=== PATIENT | female | born 1950 | race Caucasian/White ===

== ENCOUNTER 2017-08-30 17:03 | Emergency (ER) | payer MEDICARE, OTHER ==
[2017-08-30] MEDS ORDERED: HYDROCODONE/ACETAMINOPHEN 5-325 MG TABLET PO ONE (17:18)
[2017-08-30 17:19] VITALS: BP 146/71
[2017-08-30] MEDS ORDERED: KETOROLAC TROMETHAMINE INJ/PF 30 MG/1 ML SDV IM ONE (17:34)
[2017-08-30] MEDS ORDERED: FENTANYL CITRATE INJ/PF 100 MCG/2 ML AMPUL IM ONE (17:34)
[2017-08-30] MEDS ORDERED: DEXAMETHASONE 4 MG TABLET PO ONE (17:36)
--- NOTE | 2017-08-30 17:42 | ER Document Report ---
HPI - HPI Patient complains to provider of: Left fourth finger pain Onset: This morning Onset/Duration: Gradual Quality of pain: Sharp Pain Level: 4 Context: Patient states she woke up with left fourth finger pain this morning. Patient denies any injury or trauma to the finger. Patient does state that she had a ring get stuck to her finger 8 months ago and twisted to take the ring off but since then has not had any pain until this morning. Patient does have a history of rheumatoid arthritis and has decreased range of motion to all the joints of her hand. Patient without any fever. Patient states she did take tramadol at home without any improvement of her pain symptoms. Patient denies any fever. Associated Symptoms: Other - Left fourth finger pain. denies: Fever Exacerbated by: Movement Relieved by: Denies Similar symptoms previously: No Recently seen / treated by doctor: No - ROS ROS below otherwise negative: Yes Systems Reviewed and Negative: Yes All other systems reviewed and negative - CONSTITUTIONAL Constitutional: DENIES: Fever, Chills - NEURO Neurology: DENIES: Headache - CARDIOVASCULAR Cardiovascular: DENIES: Chest pain - GASTROINTESTINAL Gastrointestinal: DENIES: Nausea - MUSCULOSKELETAL Musculoskeletal: REPORTS: Extremity pain. DENIES: Swelling - DERM Skin Color: Normal Skin Problems: None Past Medical History - General Information source: Patient - Social History Smoking Status: Never Smoker Frequency of alcohol use: None Drug Abuse: None Occupation: None Lives with: Spouse/Significant other Family History: Reviewed & Not Pertinent Patient has suicidal ideation: No Patient has homicidal ideation: No - Past Medical History Cardiac Medical History: Reports: Hx Hypertension Endocrine Medical History: Reports: Hx Diabetes Mellitus Type 2 - Borderline Renal/ Medical History: Denies: Hx Peritoneal Dialysis Musculoskeltal Medical History: Reports Hx Arthritis - Rheumatoid Psychiatric Medical History: Reports: Hx Anxiety Past Surgical History: Reports: Other - Chronic back pain Vertical Provider Document - CONSTITUTIONAL Agree With Documented VS: Yes Exam Limitations: No Limitations General Appearance: WD/WN, No Apparent Distress - INFECTION CONTROL TRAVEL OUTSIDE OF THE [place] IN LAST 30 DAYS: No - HEENT HEENT: Atraumatic, Normocephalic - NECK Neck: Normal Inspection - RESPIRATORY Respiratory: No Respiratory Distress - CARDIOVASCULAR Pulses: Normal: Radial - BACK Back: Normal Inspection - MUSCULOSKELETAL/EXTREMETIES Musculoskeletal/Extremeties: Tender - Left fourth finger tenderness overlying proximal phalanx and PIP joint, No Edema Notes: Patient with chronic arthritic changes consistent with history of RA, decreased mobility no pain to the DIP and PIP joints to all fingers of left hand - NEURO Level of Consciousness: Awake, Alert, Appropriate Motor/Sensory: No Motor Deficit - DERM Integumentary: Warm, Dry, No Rash Course - Re-evaluation Re-evalutation: 08/30/17 17:30 Dr. Oconnor consulted and to bedside for examination. Recommends giving patient a single dose of Decadron, Toradol and injectable fentanyl for pain relief. Offered patient x-ray imaging, patient declines at this time. Patient without any neuro vascular compromise, does not recommend any vascular imaging studies. - Vital Signs Vital signs: Temp Pulse Resp BP Pulse Ox 98.5 F 69 18 146/71 H 95 08/30/17 17:09 08/30/17 17:09 08/30/17 17:09 08/30/17 17:09 08/30/17 17:09 Discharge - Discharge Clinical Impression: Finger pain, left, Hx of rheumatoid arthritis Condition: Stable Disposition: HOME, SELF-CARE Instructions: Oral Narcotic Medication ([facility]), Rheumatoid Arthritis ([facility]), Steroid Medication Additional Instructions: Return immediately for any new or worsening symptoms Followup with your primary care provider, call tomorrow to make a followup appointment Follow-up with an orthopedic radiologic technologist for further evaluation, call tomorrow for an appointment Prescriptions: Hydrocodone/Acetaminophen [[place] 5-325 Tablet] 1 each PO Q6 PRN #12 tablet PRN Reason: Referrals: AMILCAR DE LA CRUZ DO [ACTIVE STAFF] - Follow up tomorrow
== END 2017-08-30 18:25 | disposition home or self-care (01) ==
LOC: ER 17:03
DX: M79.645 Pain in left finger(s) (principal); M06.9 Rheumatoid arthritis, unspecified; G89.29 Other chronic pain; M54.9 Dorsalgia, unspecified; I10 Essential (primary) hypertension; E11.9 Type 2 diabetes mellitus without complications
CPT/HCPCS: 99283; 96372; 96374; A9270; J3010; J1885